=== PATIENT | female | born 1965 | race Caucasian/White ===

== ENCOUNTER 2022-03-23 16:42 | Emergency (ER) | payer OTHER, MEDICARE ==
[~2022-03-23] VITALS: Ht 167.6 cm; Wt 88.5 kg
--- NOTE | ~2022-03-23 | EKG ---
[facility] [address] [place], [place] [address] Draft EK completed, results pending confirmation PATIENT NAME: HEAVEN MARQUEZ Electrocardiogram DATE OF : 61 PHYSICIAN: PRELIMINARY REPORT #: [id number] REPORT IS CONFIDENTIAL AND NOT TO BE RELEASED WITHOUT AUTHORIZATION
--- OUTSIDE RECORDS SUMMARY | 2022-03-23 16:46 | XMS ---
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 No recent Security Events currently on file CRITERIA MET - - 3 Facilities in 90 Days CARE PROVIDERS Ira Owens Registered Nurse 10/19/2019-Current PHONE: Unknown DORA LAYNE [facility] Current PHONE: Unknown Care Guidelines exist for the following facilities: [facility] ( 06/16/2016 ) Care History Medical/Surgical 11/14/2014 [facility] Anemia / 480687637 / Confirmed Anxiety / 41529979 / Confirmed Asthma / 923544024 / Confirmed Body mass index 30+ - obesity / 126288160 / Confirmed Bruises easily / 4558739215 / Confirmed Cholesterol serum elevated / 6801SPL9- [id number] / Confirmed Chronic illness / [id number]- [id number] / Confirmed Depressive disorder / 33771051 / Confirmed Diabetes mellitus / 141543050 / Confirmed GERD - Gastro-esophageal reflux disease / 2481867175 / Confirmed Irritable bowel syndrome / 11389384 / Confirmed Migraine / 70186856 / Confirmed Myalgia / 729.1 / Probable Sleep apnea / 135258861 / Confirmed Thyroid disease / 244217167 / Confirmed UTI - Urinary tract infection / 6899592889 / Confirmed Vision impairment / [id number] / Confirmed. ITA TRIGGER RELEASE (Right, Thumb) on 06/23/2014 at 49 Years. CARPAL TUNNEL RELEASE (Left) on 03/24/2014 at 48 Years. CARPAL TUNNEL RELEASE (Right) on 12/19/2013 at 48 Years. Appendectomy (868688549). Tubal ligation (523919904). Suprapubic catheter procedure (0073466854). History of cholecystectomy (6356423570). Surgery (677705986). bilateral gastroc slide Jejunostomy tube (0535078).. E.D. VISIT COUNT (12 MO[address] [facility] 4 [facility] 1 [facility] TOTAL 6 NOTE: Visits indicate total known visits. ED/UCC VISIT TRACKING (12 MO.) 03/23/2022 16:43 YSABEL Díaz TYPE: Emergency COMPLAINT: - ALTERED MENTAL STATUS 02/20/2022 09:40 [facility] Brandy GUZMAN TYPE: Emergency DIAGNOSES: - High Blood Sugar (Symptomatic) - Acute cystitis without hematuria - Nausea with vomiting, unspecified - Type 1 diabetes mellitus with ketoacidosis without coma - chest pain, sob, headache - Acidosis 02/19/2022 10:24 Noni GUZMAN TYPE: Emergency COMPLAINT: - Multiple Medical Complaints_[id number] - CHEST PAIN UNSPECIFIED - NAUSEA WITH VOMITING UNSPECIFIED - SHORTNESS OF BREATH DIAGNOSES: 0. Nausea with vomiting, unspecified 1. Noninfective gastroenteritis and colitis, unspecified 5. Chest pain, unspecified 6. Nausea with vomiting, unspecified 7. Type 1 diabetes mellitus with hyperglycemia 8. Personal history of transient ischemic attack (TIA), and cerebral infarction without residual deficits 9. longterm (current) use of insulin 10. 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 Contact with and (suspected) exposure to COVID-19 12/17/2021 11:01 [facility] Jesus GUZMAN TYPE: Emergency DIAGNOSES: - Thumb Pain - Unspecified abdominal pain - Abdominal Pain - Urinary tract infection, site not specified 07/29/2021 09:53 [facility] Jesus GUZMAN TYPE: Emergency DIAGNOSES: - Headache (Adult - New Onset Or New Symptoms) - Sore Throat - Chest pain, sore throat, [place] - Cough - COVID-19 - Chest Pain 05/12/2021 10:40 [facility] Jesus GUZMAN TYPE: Emergency DIAGNOSES: - abdominal pain - Epigastric pain INPATIENT VISIT TRACKING (12 MO.) 02/20/2022 09:40 [facility] DaliAlpeshEbonyAlpesh GUZMAN TYPE: Intensive Care DIAGNOSES: - Acute cystitis without hematuria - Nausea with vomiting, unspecified - Type 1 diabetes mellitus with ketoacidosis without coma - Acidosis [id number]
[2022-03-23] MEDS ORDERED: FLUOXETINE HCL20 MG PO (16:57)
[2022-03-23] MEDS ORDERED: NITROFURANTOIN100 M1 PO (16:57)
[2022-03-23] MEDS ORDERED: PHENAZOPYRIDIN200 MG PO (16:57)
[2022-03-23] MEDS ORDERED: NYSTATIN15 G1 (16:58)
[2022-03-23] MEDS ORDERED: NOVOLOG100 UNIT/2 SQ (16:58)
[2022-03-23] MEDS ORDERED: METHOTREXATE2.5 MG PO (16:58)
[2022-03-23] MEDS ORDERED: FOLIC ACID1 MG PO (16:58)
[2022-03-23] MEDS ORDERED: OXYCODONE HCL5 MG PO (16:58)
[2022-03-23] MEDS ORDERED: ATORVASTATIN CA80 MG PO (16:59)
[2022-03-23] MEDS ORDERED: LEVOTHYROXINE125 MCG PO (16:59)
[2022-03-23] MEDS ORDERED: CYCLOBENZAPRINE10 MG PO (16:59)
[2022-03-23] MEDS ORDERED: PILOCARPINE HC7.5 MG PO (16:59)
[2022-03-23] MEDS ORDERED: HYDROXYCHLOROQ200 MG PO (16:59)
[2022-03-23] MEDS ORDERED: TOPIRAMATE50 MG PO (16:59)
[2022-03-23] MEDS ORDERED: CLOPIDOGREL75 MG PO (17:00)
== END 2022-03-23 20:24 | disposition home or self-care (01) ==
LOC: ED 16:42
DX: F10.129 Alcohol abuse with intoxication, unspecified (principal); Z79.899 Other long term (current) drug therapy; Z79.4 Long term (current) use of insulin; Z79.02 Long term (current) use of antithrombotics/antiplatelets; Z88.1 Allergy status to other antibiotic agents; Y90.6 Blood alcohol level of 120-199 mg/100 ml
CPT/HCPCS: 36415; 71045; 80053; 81001; 82010; 85025; 85610; 85730; 93005; 93010; 96374; 96375; 99285-25; G0480; J2405